=== PATIENT | male | born 1955 | race Asian ===

== ENCOUNTER 2018-01-08 21:52 | Emergency (ER) | payer OTHER | END 2018-01-08 22:01 | disposition left against medical advice (07) | LOC: UCEAST 21:52 | DX: R10.9 Unspecified abdominal pain (principal); Z53.21 Procedure and treatment not carried out due to patient leaving prior to being seen by health care provider | CPT/HCPCS: 99201; G0463 ==

== ENCOUNTER 2018-01-08 22:17 | Emergency (ER) | payer OTHER ==
[2018-01-08] MEDS ORDERED: NS 0.9% 1000 ML* 1,000 ML IV ONE (23:19)
[2018-01-08] MEDS ORDERED: Ketorolac INJ* 30 MG/ML 1 ML VIAL IV PUSH ONE (23:19)
[2018-01-08] MEDS ORDERED: Ondansetron INJ* 2 MG/ML VIAL IV ONE (23:19)
[2018-01-09 00:33] LABS: EGFR Non-African American 99.7 (>60)
[2018-01-09 00:51] LABS: ABS Basophils 0 10^3/ul (0-0.2); ABS Eosinophils 0 10^3/ul (0-0.6); ABS Lymphocytes 0.6 10^3/ul (1.0-4.8); ABS Monocytes 0.3 10^3/ul (0-0.8); ABS Neutrophils 12.1 10^3/ul (1.5-7.7); ABS Nucleated RBC 0 10^3/ul; Eosinophil % 0 % (0-6); Hematocrit 49 % (42-52); Hemoglobin 16.6 g/dl (14.0-18.0); Lymphocyte % 4.9 % (25-47); Mean Corpuscular HGB Conc 34 g/dl (31-36); Mean Corpuscular Hemoglobin 30 pg (27-31); Mean Corpuscular Volume 88 fL (80-94); Mean Platelet Volume 9 um3 (7.4-10.4); Nucleated Red Blood Cells % 0; Platelet Count 215 10^3/ul (150-450); Red Cell Distribution Width 14 % (10.5-15); White Blood Count 13.1 10^3/ul (3.5-10.8)
[2018-01-09 01:20] VITALS: BP 135/95
--- NOTE | 2018-01-09 06:10 | ED ---
Javed Monk Julia, scribed for Los Vega MD on 01/08/18 at 2319 . Abdominal Pain/Male - HPI Summary HPI Summary: This patient is a 62 year old M presenting to [facility] accompanied by his son with a chief complaint of dull left sided abdominal since 15:00 today that has worsened and moved to the RUQ. Patient reports nausea and fatigue. Patient denies vomiting, diarrhea, and dysuria. The patient rates the pain 10/10 in severity. Symptoms aggravated by eating. Patient has hx of gallstones. - History of Current Complaint Chief Complaint: EDAbdPain Stated Complaint: ABD PAIN Time Seen by Provider: 01/08/18 23:14 Hx Obtained From: Patient Onset/Duration: Lasting Hours Timing: Constant Severity Initially: Mild Severity Currently: Severe Pain Intensity: 10 Pain Scale Used: 0-10 Numeric Location: Diffuse - left, Discrete At: RUQ Character: Dull Associated Signs And Symptoms: Positive: Nausea, Other - fatigue. Negative: Urinary Symptoms, Vomiting, Diarrhea - Allergies/Home Medications Allergies/Adverse Reactions: Allergies Allergy/AdvReac Type Severity Reaction Status Date / Time No Known Allergies Allergy Verified 01/08/18 22:29 PMH/Surg Hx/FS Hx/Imm Hx Cardiovascular History: Reports: Hx Hypertension GI History: Reports: Other GI Disorders - gallstones Infectious Disease History: No Infectious Disease History: Denies: Traveled Outside the [place] in Last 30 Days - Social History Lives: With Family Review of Systems Positive: Fatigue Positive: Abdominal Pain, Nausea. Negative: Vomiting, Diarrhea Positive: no symptoms reported All Other Systems Reviewed And Are Negative: Yes Physical Exam - Summary Physical Exam Summary: Appearance: Well appearing, no pain distress Skin: warm, dry, reflects adequate perfusion Head/face: normal Eyes: EOMI, JUMANA ENT: normal Neck: supple, non-tender Respiratory: CTA, breath sounds present Cardiovascular: RRR, pulses symmetrical Abdomen: soft, RUQ tenderness, positive murphys in RUQ Bowel: present Musculoskeletal: normal, strength/ROM intact Neuro: normal, sensory motor intact, A&Ox3 Triage Information Reviewed: Yes Vital Signs On Initial Exam: Initial Vitals Temp Pulse Resp BP Pulse Ox 97.8 F 69 16 130/76 98 01/08/18 22:26 01/08/18 22:26 01/08/18 22:26 01/08/18 22:26 02/19/18 22:26 Vital Signs Reviewed: Yes Diagnostics - Vital Signs Vital Signs Temp Pulse Resp BP Pulse Ox 01/08/18 22:26 97.8 F 69 16 130/76 98 - Laboratory Lab Results: Lab Results 01/09/18 01/09/18 Range/Units 00:06 00:06 WBC 13.1 H (3.5-10.8) 10^3/ul RBC 5.50 H (4.0-5.4) 10^6/ul Hgb 16.6 (14.0-18.0) g/dl Hct 49 (42-52) % MCV 88 (80-94) fL MCH 30 (27-31) pg MCHC 34 (31-36) g/dl RDW 14 (10.5-15) % Plt Count 215 (150-450) 10^3/ul MPV 9 (7.4-10.4) um3 Neut % (Auto) 92.5 H (38-83) % Lymph % (Auto) 4.9 L (25-47) % [place] % (Auto) 2.2 (1-9) % Eos % (Auto) 0 (0-6) % Baso % (Auto) 0.4 (0-2) % Absolute Neuts (auto) 12.1 H (1.5-7.7) 10^3/ul Absolute Lymphs (auto) 0.6 L (1.0-4.8) 10^3/ul Absolute Monos (auto) 0.3 (0-0.8) 10^3/ul Absolute Eos (auto) 0 (0-0.6) 10^3/ul Absolute Basos (auto) 0 (0-0.2) 10^3/ul Absolute Nucleated RBC 0 10^3/ul Nucleated RBC % 0 Sodium 137 (133-145) mmol/L Potassium 3.4 L (3.5-5.0) mmol/L Chloride 105 (101-111) mmol/L Carbon Dioxide 25 (22-32) mmol/L Anion Gap 7 (2-11) mmol/L BUN 10 (6-24) mg/dL Creatinine 0.79 (0.67-1.17) mg/dL Est GFR ( Amer) 128.2 (>60) Est GFR (Non-Af Amer) 99.7 (>60) BUN/Creatinine Ratio 12.7 (8-20) Glucose 173 H (70-100) mg/dL Calcium 9.1 (8.6-10.3) mg/dL Total Bilirubin 0.80 (0.2-1.0) mg/dL AST 27 (13-39) U/L ALT 57 H (7-52) U/L Alkaline Phosphatase 77 (34-104) U/L Total Protein 7.0 (6.4-8.9) g/dL Albumin 4.5 (3.2-5.2) g/dL Globulin 2.5 (2-4) g/dL Albumin/Globulin Ratio 1.8 (1-3) Lipase 30 (11.0-82.0) U/L Result Diagrams: 01/09/18 00:06 01/09/18 00:06 Lab Statement: Any lab studies that have been ordered have been reviewed, and results considered in the medical decision making process. - Additional Comments Diagnostic Additional Comments: Gallbladder US reveals a normal exam, as per radiologist. ED Physician has reviewed this report. Re-Evaluation - Re-Evaluation 1 Re-Evaluation Time: 00:45 Change: Improved - pain is resolved, abdomen is soft and non tender Abdominal Pain Fem Course/Dx - Course Course Of Treatment: pain totally gone with tx. Hx of "stones" w/o follow up. Nl GB US here with nl LFTs. Abd soft and pain gone after toradol. Recommend outpt HIDA. Moving bowel normally. Also rec outpt c-scope if sx recur. Pt from [place], will see his doctor on arrival back home. - Diagnoses Differential Diagnosis/HQI/PQRI: Bowel Obstruction, Constipation, Gall Bladder Disease, Pancreatitis Provider Diagnoses: RUQ abdominal pain, Colic, biliary Discharge - Discharge Plan Condition: Good Disposition: HOME Prescriptions: Famotidine TAB* [Pepcid 20 MG TAB*] 20 mg PO BID #20 tab Hyoscyamine Sulfate 0.125 mg PO Q6H PRN #30 tab.rapdis PRN Reason: cramping Patient Education Materials: Biliary Colic (ED) Referrals: [facility] [Outside] Additional Instructions: You will need to schedule to see a doctor in follow up. Call number provided. You may be having gallbladder trouble. This may be a FUNCTIONAL issue. An outpatient HIDA scan is recommended if you continue to have trouble. LOW FAT diet. Return with increased or unremitting pain, vomiting, fever, yellowing of the skin, worse or other concerns. The documentation as recorded by the Javed henson Julia accurately reflects the service I personally performed and the decisions made by me, Los Vega MD.
--- NOTE | 2018-01-09 07:57 | RAD ---
Indication: Right upper quadrant pain. Real-time sonography of the right upper quadrant was performed. The liver measures 16.0 cm in length. It is diffusely increased in echogenicity consistent with hepatic steatosis. The gallbladder demonstrates no gallstones, pericholecystic fluid or wall thickening. The gallbladder is distended however no definite gallstones are identified. Gallbladder wall measures up to 2.9 mm. Common duct measures 3 mm. Right kidney measures 12.4 x 6.0 x 6.1 cm. Aorta and inferior vena cava are unremarkable. IMPRESSION: No evidence of cholelithiasis or biliary ductal dilatation is noted.
== END 2018-01-09 01:21 | disposition home or self-care (01) ==
LOC: ED 22:17
DX: K80.50 Calculus of bile duct without cholangitis or cholecystitis without obstruction (principal); R10.11 Right upper quadrant pain; R53.83 Other fatigue
CPT/HCPCS: 36415; 76705; 80053; 83690; 85025; 96374; 96375; 99284; J1885; J2405